=== PATIENT | male | born 1955 | race Caucasian/White ===

== ENCOUNTER 2016-08-31 13:21 | Emergency (ER) | payer BC ==
[~2016-08-31] VITALS: Ht 170.2 cm; Wt 81.2 kg
[~2016-08-31 13:21] MED LIST: HYDR-3533 PO; NAPR500 PO; ZOFR4TAB3 PO
[2016-08-31 13:33] VITALS: BP 154/83; PULSE 64; RESP 15; TEMP 98.1; O2SAT 98
[2016-08-31] MEDS ORDERED: SODIUM CHLOR 0.9% 1000 ML INJ 1,000 ML IV SCH (13:48)
[2016-08-31 13:53] VITALS: RESP 16; O2SAT 99
[2016-08-31] MEDS ORDERED: SODIUM CHLORIDE 0.9% FLUSH 10 ML FLUSH IV FLUSH PRN (14:00)
[2016-08-31] MEDS ORDERED: ONDANSETRON HCL 4 MG/2 ML VIAL IVP ONE (14:00)
[2016-08-31] MEDS ORDERED: MORPHINE SULFATE 4 MG/ML INJ IV PUSH ONE ×2 (14:00→15:15)
[2016-08-31 14:09] LABS: AUTOMATED NEUTROPHIL # 5.1 TH/MM3 (1.8-7.7); BASOPHIL # 0.1 TH/MM3 (0-0.2); BASOPHIL % 0.8 % (0.0-2.0); EOSINOPHIL # 0.2 TH/MM3 (0-0.4); EOSINOPHIL % 2.6 % (0.0-4.0); HEMATOCRIT 37.1 % (39.0-51.0); LYMPH % 15.1 % (9.0-44.0); MEAN CELL VOLUME 90.8 FL (80.0-100.0); MEAN CORPUSCULAR HEMOGLOBIN 31.5 PG (27.0-34.0); MEAN CORPUSCULAR HGB CONC 34.7 % (32.0-36.0); MONO % 6.5 % (0.0-8.0); PLATELET COUNT 178 TH/MM3 (150-450); RED BLOOD COUNT 4.09 MIL/MM3 (4.50-5.90); RED CELL DISTRIBUTION WIDTH 12.1 % (11.6-17.2); WHITE BLOOD COUNT 6.8 TH/MM3 (4.0-11.0)
[2016-08-31 14:10] LABS: HEMO FLAGS DIFF FINAL
[2016-08-31 14:22] LABS: CHLORIDE 109 MEQ/L (98-107); POTASSIUM 4.1 MEQ/L (3.5-5.1); SODIUM (NA) 146 MEQ/L (136-145)
[2016-08-31 14:26] LABS: ANION GAP 10 MEQ/L (5-15); BICARBONATE 27.4 MEQ/L (21.0-32.0)
[2016-08-31 14:27] LABS: BLOOD UREA NITROGEN 11 MG/DL (7-18)
[2016-08-31 14:29] LABS: ALT (GPT) 33 U/L (12-78); AST (GOT) 24 U/L (15-37); GLOMERULAR FILTRATION RATE 79 ML/MIN (>89)
[2016-08-31 14:31] LABS: TOTAL BILIRUBIN ADULT 0.6 MG/DL (0.2-1.0)
[2016-08-31 14:32] LABS: ALKALINE PHOSPHATASE 87 U/L (45-117)
--- NOTE | 2016-08-31 14:33 | PD ---
HPI Chief Complaint: Abdominal Pain Time Seen by Provider: 13:38 Travel History International Travel<30 days: No Contact w/Intl Traveler<30days: No Traveled to known affect area: No History of Present Illness HPI The patient is a 60-year-old male who presents to the emergency department for abdominal pain. The patient states abdominal pain started this morning, is located left lower quadrant, nonradiating, worse with coughing and certain positions such as sitting upright. Patient denies any radiation of the pain to the back or upper abdomen. He denies any nausea, vomiting, diarrhea, or change in bowel habits. He does occasionally feel like he needs to have a bowel movement, but attributed to the abdominal pain. The patient denies any dysuria, frequency, or urgency. The patient does have a history of nephrolithiasis with different symptoms in the past. The patient denies any history of diverticulitis. The patient did have an abdominal surgery for left inguinal hernia at the age of 6. He denies any associated fever, chills, or sweats. PFSH Past Medical History Diminished Hearing: No Hypertension: Yes Inguinal Hernia: Yes Kidney Stones: Yes Immunizations Current: No Tetanus Vaccination: > 5 Years Influenza Vaccination: No ?: Not Past Surgical History Surgical History: No Previous Surgery Abdominal Surgery: Yes (RIGHT INGUINAL HERNIA REAPIR, CHILD) Social History Alcohol Use: Yes (WINE, OCCASIONALLY) Tobacco Use: No (QUIT 15-20 YRS AGO) Substance Use: No Allergies-Medications (Allergen,Severity, Reaction): Coded Allergies: No Known Allergies (Unverified , 08/31/16) Reported Meds & Prescriptions Reported Meds & Active Scripts Active Lortab 5 mg/325 mg (Hydrocodone/Acetaminophen 5 mg/325 mg) 1 Tab 1-2 Tab PO Q4H PRN Naprosyn (Naproxen) 500 Mg Tab 500 Mg PO BID PRN Zofran ODT (Ondansetron HCl) 4 Mg Tab 4 Mg PO Q6 PRN May substitute, non-ODT form Review of Systems Except as stated in HPI: all other systems reviewed are Neg General / Constitutional: No: Fever Cardiovascular: No: Chest Pain or Discomfort Respiratory: No: Shortness of Breath Gastrointestinal: Positive: Abdominal Pain, No: Nausea, Vomiting, Diarrhea, Constipation, Changes in Bowel Habits Genitourinary: No: Dysuria, Hematuria Musculoskeletal: No: Myalgias Skin: No Rash Physical Exam Narrative GENERAL: Awake, alert, pleasant 60-year-old male who appears his stated age and is in no acute respiratory distress. SKIN: Focused skin assessment warm/dry. HEAD: Atraumatic. Normocephalic. EYES: No injection or drainage. ENT: No nasal bleeding or discharge. Mucous membranes pink and moist. NECK: Trachea midline. No JVD. CARDIOVASCULAR: Regular rate and rhythm. No murmur appreciated. RESPIRATORY: No accessory muscle use. Clear to auscultation. Breath sounds equal bilaterally. GASTROINTESTINAL: Abdomen soft, tender to palpation left lower quadrant with mild guarding. No rebound tenderness. Back: No CVA tenderness. MUSCULOSKELETAL: No obvious deformities. No clubbing. No cyanosis. No edema. NEUROLOGICAL: Awake and alert. No obvious cranial nerve deficits. Motor grossly within normal limits. Normal speech. PSYCHIATRIC: Appropriate mood and affect; insight and judgment normal. Data Data Last Documented VS Vital Signs Date Time Temp Pulse Resp B/P Pulse Ox O2 Delivery O2 Flow Rate FiO2 08/31/16 14:56 64 18 146/84 98 Room Air 08/31/16 13:33 98.1 Orders Complete Blood Count With Diff (08/31/16 13:48) Comprehensive Metabolic Panel (08/31/16 13:48) Lipase (08/31/16 13:48) Ct Abd/Pel W/O Iv Contrast (08/31/16 13:48) Iv Access Insert/Monitor (08/31/16 13:48) Ecg Monitoring (08/31/16 13:48) Oximetry (08/31/16 13:48) Morphine Inj (Morphine Inj) (08/31/16 14:00) Ondansetron Inj (Zofran Inj) (08/31/16 14:00) Sodium Chlor 0.9% 1000 Ml Inj (Ns 1000 M (08/31/16 13:48) Sodium Chloride 0.9% Flush (Ns Flush) (08/31/16 14:00) Labs Laboratory Tests Test 08/31/16 14:00 White Blood Count 6.8 TH/MM3 Red Blood Count 4.09 MIL/MM3 Hemoglobin 12.9 GM/DL Hematocrit 37.1 % Mean Corpuscular Volume 90.8 FL Mean Corpuscular Hemoglobin 31.5 PG Mean Corpuscular Hemoglobin 34.7 % Concent Red Cell Distribution Width 12.1 % Platelet Count 178 TH/MM3 Mean Platelet Volume 7.6 FL Neutrophils (%) (Auto) 75.0 % Lymphocytes (%) (Auto) 15.1 % Monocytes (%) (Auto) 6.5 % Eosinophils (%) (Auto) 2.6 % Basophils (%) (Auto) 0.8 % Neutrophils # (Auto) 5.1 TH/MM3 Lymphocytes # (Auto) 1.0 TH/MM3 Monocytes # (Auto) 0.4 TH/MM3 Eosinophils # (Auto) 0.2 TH/MM3 Basophils # (Auto) 0.1 TH/MM3 CBC Comment DIFF FINAL Differential Comment Sodium Level 146 MEQ/L Potassium Level 4.1 MEQ/L Chloride Level 109 MEQ/L Carbon Dioxide Level 27.4 MEQ/L Anion Gap 10 MEQ/L Blood Urea Nitrogen 11 MG/DL Creatinine 0.98 MG/DL Estimat Glomerular Filtration 79 ML/MIN Rate Random Glucose 120 MG/DL Calcium Level 8.4 MG/DL Total Bilirubin 0.6 MG/DL Aspartate Amino Transf 24 U/L (AST/SGOT) Alanine Aminotransferase 33 U/L (ALT/SGPT) Alkaline Phosphatase 87 U/L Total Protein 6.9 GM/DL Albumin 3.6 GM/DL Lipase 6437 U/L MDM Medical Decision Making Medical Screen Exam Complete: Yes Emergency Medical Condition: Yes Medical Record Reviewed: Yes Interpretation(s) Last Impressions Abdomen/Pelvis CT 08/31/16 1348 Signed Impressions: Service Date/Time: Wednesday, August 31, 2016 14:32 - CONCLUSION: Acute diverticulitis. Roberto Miguel MD Laboratory Tests Test 08/31/16 14:00 White Blood Count 6.8 TH/MM3 Red Blood Count 4.09 MIL/MM3 Hemoglobin 12.9 GM/DL Hematocrit 37.1 % Mean Corpuscular Volume 90.8 FL Mean Corpuscular Hemoglobin 31.5 PG Mean Corpuscular Hemoglobin 34.7 % Concent Red Cell Distribution Width 12.1 % Platelet Count 178 TH/MM3 Mean Platelet Volume 7.6 FL Neutrophils (%) (Auto) 75.0 % Lymphocytes (%) (Auto) 15.1 % Monocytes (%) (Auto) 6.5 % Eosinophils (%) (Auto) 2.6 % Basophils (%) (Auto) 0.8 % Neutrophils # (Auto) 5.1 TH/MM3 Lymphocytes # (Auto) 1.0 TH/MM3 Monocytes # (Auto) 0.4 TH/MM3 Eosinophils # (Auto) 0.2 TH/MM3 Basophils # (Auto) 0.1 TH/MM3 CBC Comment DIFF FINAL Differential Comment Sodium Level 146 MEQ/L Potassium Level 4.1 MEQ/L Chloride Level 109 MEQ/L Carbon Dioxide Level 27.4 MEQ/L Anion Gap 10 MEQ/L Blood Urea Nitrogen 11 MG/DL Creatinine 0.98 MG/DL Estimat Glomerular Filtration 79 ML/MIN Rate Random Glucose 120 MG/DL Calcium Level 8.4 MG/DL Total Bilirubin 0.6 MG/DL Aspartate Amino Transf 24 U/L (AST/SGOT) Alanine Aminotransferase 33 U/L (ALT/SGPT) Alkaline Phosphatase 87 U/L Total Protein 6.9 GM/DL Albumin 3.6 GM/DL Lipase 6437 U/L Differential Diagnosis Differential diagnosis includes diverticulitis, nephrolithiasis, colitis, abdominal abscess, hydronephrosis, pyelonephritis, UTI, small bowel obstruction , large bowel obstruction. Narrative Course IV was established, labs are drawn and sent, and the patient was placed on cardiac telemetry monitoring and continuous pulse oximetry monitoring. The patient was administered morphine, Zofran, and IV fluids. CT of the abdomen and pelvis was ordered to evaluate for diverticulitis. The patient's labs reveal an elevated lipase greater than 6300, however, the patient has no nausea , vomiting, epigastric abdominal pain. CT reveals acute diverticulitis. Had a discussion with the patient, he is able tolerate oral intake, has epigastric tenderness, therefore, lipase may be lab error, patient will need repeat outpatient lipase level. Patient will be treated with Cipro, Flagyl, and pain medications. The patient is comfortable with this plan of care. He will be discharged home with antibiotics and pain medications. Diagnosis Primary Impression: Acute diverticulitis Patient Instructions: General Instructions Additional Instructions: Medications as directed. Follow-up with your primary physician. You need a repeat outpatient lipase level. Please provide the patient a copy of his CT results and lab results at discharge. Return if symptoms worsen or progress. Med/Other Pt SpecificInfo: Prescription(s) given Scripts Hydrocodone-Acetaminophen (Rives)5-325 mg Tab1 Tab PO Q6H PRN (PAIN) #20 TAB Ref 0 Prov:Oscar Smith MD 08/31/16 Metronidazole (Flagyl)500 Mg [id number] Mg PO BID 7 Days Ref 0 Prov:Oscar Smith MD 08/31/16 Ciprofloxacin (Cipro)500 Mg [id number] Mg PO BID 7 Days Ref 0 Prov:Oscar Smith MD 08/31/16 Disposition: 01 DISCHARGE HOME Condition: Stable Oscar Smith MD Aug 31, 2016 14:33
[2016-08-31 14:56] VITALS: BP 146/84; PULSE 64; RESP 18; O2SAT 98
--- NOTE | 2016-08-31 14:57 | RADHPO ---
EXAM DATE/TIME: 08/31/2016 14:32 [facility] COMPARISON: CT ABDOMEN & PELVIS W/O CONTRAST, October 21, 2014, 6:41. INDICATIONS : Lower left abdomen pain. ORAL CONTRAST: No oral contrast ingested. RADIATION DOSE: 10.34 CTDIvol (mGy) MEDICAL HISTORY : None SURGICAL HISTORY : Inguinal hernia repair. ENCOUNTER: Initial ACUITY: 1 day PAIN SCALE: 4/10 LOCATION: Left flank TECHNIQUE: Volumetric scanning of the abdomen and pelvis was performed. Using automated exposure control and ad justment of the mA and/or kV according to patient size, radiation dose was kept as low as reasonably achievable to obtain optimal diagnostic quality images. FINDINGS: CT Abdomen: The spleen, pancreas, kidneys, adrenals are unremarkable. There is no evidence for any ap preciable pathological adenopathy, free fluid, or bowel obstruction. There is slight atelectasis and /or infiltrate in right middle lobe. The liver is fatty without focal lesions or technique. There is no evidence for any stones in the kidneys or the course of the ureters on either side. There is no hy dronephrosis. CT pelvis: There is no evidence for mass, abscess formation, or any significant adenopathy within the pelvis. There are diverticuli in the colon with an area of acute diverticulitis involving descending colon at the junction of the sigmoid colon not present previously. Previously seen stone in the left UVJ is no longer seen. CONCLUSION: Acute diverticulitis. Roberto Miguel MD on August 31, 2016 at 14:53 Board Certified Radiologist. This report was verified electronically.
[2016-08-31] MEDS ORDERED: CIPR-9 PO (15:14)
[2016-08-31] MEDS ORDERED: NORC5TAB PO (15:14)
[2016-08-31] MEDS ORDERED: METR-1 PO (15:14)
[2016-08-31] MEDS ORDERED: CIPROFLOXACIN 500 MG TAB PO ONE (15:15)
[2016-08-31] MEDS ORDERED: metroNIDAZOLE 500 MG INJ 100 ML IV ONE (15:15)
[2016-08-31 16:00] VITALS: BP 123/74; PULSE 74; RESP 16; O2SAT 100
== END 2016-08-31 16:44 | disposition home or self-care (01) ==
LOC: PHED 13:21
DX: K57.32 Diverticulitis of large intestine without perforation or abscess without bleeding (principal); I10 Essential (primary) hypertension; R79.89 Other specified abnormal findings of blood chemistry; Z87.442 Personal history of urinary calculi; Z87.39 Personal history of other diseases of the musculoskeletal system and connective tissue
CPT/HCPCS: 74176; 80053; 83690; 85025; 96361; 96365; 96375; 96376; 99284; J2270; J2405; J7030

== ENCOUNTER 2017-07-30 17:58 | Emergency (ER) | payer BC ==
[~2017-07-30] VITALS: Ht 170.2 cm; Wt 80.7 kg
[~2017-07-30 17:58] MED LIST changes: +CIPR-9 PO; +METR-1 PO; +NORC5TAB PO
[2017-07-30 17:59] VITALS: BP 149/71; PULSE 65; RESP 16; TEMP 99; O2SAT 99
[2017-07-30] MEDS ORDERED: VENTAER INH (18:23)
[2017-07-30] MEDS ORDERED: SODIUM CHLOR 0.9% 1000 ML INJ 1,000 ML IV SCH (18:26)
[2017-07-30] MEDS ORDERED: SODIUM CHLORIDE 0.9% FLUSH 10 ML FLUSH IV FLUSH PRN (18:30)
[2017-07-30 18:43] LABS: AUTOMATED NEUTROPHIL # 7.6 TH/MM3 (1.8-7.7); BASOPHIL # 0.3 TH/MM3 (0-0.2); BASOPHIL % 3.3 % (0.0-2.0); EOSINOPHIL # 0.1 TH/MM3 (0-0.4); EOSINOPHIL % 0.7 % (0.0-4.0); HEMATOCRIT 38.3 % (39.0-51.0); HEMOGLOBIN 12.8 GM/DL (13.0-17.0); LYMPH % 10.7 % (9.0-44.0); MEAN CELL VOLUME 90.9 FL (80.0-100.0); MEAN CORPUSCULAR HEMOGLOBIN 30.5 PG (27.0-34.0); MEAN CORPUSCULAR HGB CONC 33.5 % (32.0-36.0); MEAN PLATELET VOLUME 7.8 FL (7.0-11.0); MONO % 5.2 % (0.0-8.0); MONOCYTE # 0.5 TH/MM3 (0-0.9); NEUT % 80.1 % (16.0-70.0); PLATELET COUNT 175 TH/MM3 (150-450); RED BLOOD COUNT 4.21 MIL/MM3 (4.50-5.90); RED CELL DISTRIBUTION WIDTH 12.2 % (11.6-17.2); WHITE BLOOD COUNT 9.5 TH/MM3 (4.0-11.0)
[2017-07-30] MEDS ORDERED: IOHEXOL 350 MG/ML 10 ML VIAL (for RAD DIAG) IVCONTRAST ONE (18:43)
[2017-07-30 18:47] VITALS: PULSE 67; RESP 16; O2SAT 99
[2017-07-30 18:56] LABS: CHLORIDE 108 MEQ/L (98-107); SODIUM (NA) 138 MEQ/L (136-145)
[2017-07-30 18:58] VITALS: BP 131/80; PULSE 67; RESP 16; O2SAT 99
--- NOTE | 2017-07-30 18:58 | RADRPT ---
EXAM DATE/TIME: 07/30/2017 18:39 [facility] COMPARISON: CT ABDOMEN & PELVIS W/O CONTRAST, August 31, 2016, 14:32. INDICATIONS : Left sided abdomen pain. IV CONTRAST: 100 cc Omnipaque 350 (iohexol) IV ORAL CONTRAST: No oral contrast ingested. RADIATION DOSE: 9.07 CTDIvol (mGy) MEDICAL HISTORY : Diverticulitis. Hernia, inguinal. Renal calculi. SURGICAL HISTORY : Inguinal hernia repair. ENCOUNTER: Initial ACUITY: 1 day PAIN SCALE: 9/10 LOCATION: Left abdomen TECHNIQUE: Volumetric scanning of the abdomen and pelvis was performed. Using automated exposure control and ad justment of the mA and/or kV according to patient size, radiation dose was kept as low as reasonably achievable to obtain optimal diagnostic quality images. DICOM format image data is available electro nically for review and comparison. FINDINGS: LOWER LUNGS: The visualized lower lungs are clear. LIVER: Small area of fatty infiltration adjacent to the falciform ligament. Homogeneous density otherwise wi thout focal lesion. There is no dilation of the biliary tree. No calcified gallstones. SPLEEN: Normal size without lesion. PANCREAS: Within normal limits. KIDNEYS: Normal in size and shape. There is no mass, stone or hydronephrosis. ADRENAL GLANDS: Within normal limits. VASCULAR: There is no aortic aneurysm. BOWEL/MESENTERY: There is diverticulosis of the left side of the colon. Moderate severity acute diverticulitis seen in the pelvic cavity involving the proximal to mid sigmoid colon. No abscess, perforation or obstructio n. ABDOMINAL WALL: Within normal limits. RETROPERITONEUM: There is no lymphadenopathy. BLADDER: No wall thickening or mass. REPRODUCTIVE: Within normal limits. INGUINAL: There is no lymphadenopathy or hernia. MUSCULOSKELETAL: No acute bony abnormality demonstrated. CONCLUSION: Uncomplicated acute diverticulitis of the sigmoid colon. John Moreno MD on July 30, 2017 at 18:54 Board Certified Radiologist. This report was verified electronically.
[2017-07-30 18:59] LABS: CALCIUM 8.6 MG/DL (8.5-10.1)
[2017-07-30 19:00] LABS: ALBUMIN 3.7 GM/DL (3.4-5.0); BICARBONATE 24.1 MEQ/L (21.0-32.0); BLOOD UREA NITROGEN 14 MG/DL (7-18); GLUCOSE,RANDOM 88 MG/DL (74-106)
[2017-07-30 19:03] LABS: ALT (GPT) 41 U/L (12-78); AST (GOT) 34 U/L (15-37); CREATININE 0.78 MG/DL (0.60-1.30); GLOMERULAR FILTRATION RATE 102 ML/MIN (>89)
[2017-07-30 19:04] LABS: TOTAL BILIRUBIN ADULT 0.6 MG/DL (0.2-1.0)
[2017-07-30 19:05] LABS: TOTAL PROTEIN 7.3 GM/DL (6.4-8.2)
[2017-07-30 19:06] LABS: ALKALINE PHOSPHATASE 89 U/L (45-117)
[2017-07-30] MEDS ORDERED: METR-1 PO (19:22)
[2017-07-30] MEDS ORDERED: CIPR-9 PO (19:22)
[2017-07-30] MEDS ORDERED: DICY10 PO (19:22)
[2017-07-30] MEDS ORDERED: ZOFR4TAB3 SL (19:22)
--- NOTE | 2017-07-30 19:22 | PD ---
HPI Chief Complaint: Abdominal Pain Time Seen by Provider: 18:17 Travel History International Travel<30 days: No Contact w/Intl Traveler<30days: No Traveled to known affect area: No History of Present Illness HPI Patient is a 61-year-old male with a history of isolated kidney stone and isolated diverticulitis in the past presents emergency department for evaluation of left lower quadrant abdominal pain for the past few days, waxing and waning, associated with some nausea without vomiting. No blood in stool. No fevers, still tolerating good p.o. States the pain is moderate in intensity , no chest pain no shortness of breath. Gradually worsening. Associated signs and symptoms and contacts as above. Patient went to an urgent care center today and was referred to the emergency department. [facility] Past Medical History Asthma: Yes (exercise induce asthma) Diminished Hearing: No Diverticulitis: Yes Hypertension: Yes Inguinal Hernia: Yes Kidney Stones: Yes Immunizations Current: No Tetanus Vaccination: > 5 Years Influenza Vaccination: No Past Surgical History Abdominal Surgery: Yes (RIGHT INGUINAL HERNIA REAPIR, CHILD) Social History Alcohol Use: Yes (WINE, OCCASIONALLY) Tobacco Use: No (QUIT 15-20 YRS AGO-hx of cig smoker) Substance Use: No Allergies-Medications (Allergen,Severity, Reaction): Coded Allergies: No Known Allergies (Unverified Adverse Reaction, Unknown, 07/30/17) Reported Meds & Prescriptions Reported Meds & Active Scripts Active Bentyl (Dicyclomine HCl) 10 Mg Cap 10 Mg PO TID PRN Zofran Odt (Ondansetron Odt) 4 Mg Tab 4 Mg SL Q6HR PRN Cipro (Ciprofloxacin HCl) 500 Mg Tab 500 Mg PO BID 7 Days Flagyl (Metronidazole) 500 Mg Tab 500 Mg PO BID 7 Days Reported Ventolin Hfa 18 GM Inh (Albuterol Sulfate) 90 Mcg/Act Aer 2 Puff INH Q4-6H PRN Review of Systems Except as stated in HPI: all other systems reviewed are Neg Physical Exam Narrative GENERAL: Well-developed, well-nourished, no obvious distress SKIN: Focused skin assessment warm/dry. HEAD: Atraumatic. Normocephalic. EYES: Pupils equal and round. No scleral icterus. No injection or drainage. ENT: No nasal bleeding or discharge. Mucous membranes pink and moist. NECK: Trachea midline. No JVD. CARDIOVASCULAR: Regular rate and rhythm. No murmur appreciated. RESPIRATORY: No accessory muscle use. Clear to auscultation. Breath sounds equal bilaterally. GASTROINTESTINAL: Abdomen soft, minimally tender in the left lower quadrant without any rebound or percussive tenderness., nondistended. Hepatic and splenic margins not palpable. MUSCULOSKELETAL: No obvious deformities. No clubbing. No cyanosis. No edema. NEUROLOGICAL: Awake and alert. No obvious cranial nerve deficits. Motor grossly within normal limits. Normal speech. PSYCHIATRIC: Appropriate mood and affect; insight and judgment normal. Data Data Last Documented VS Vital Signs Date Time Temp Pulse Resp B/P (MAP) Pulse Ox O2 Delivery O2 Flow Rate FiO2 07/30/17 19:49 62 16 151/83 (105) 100 07/30/17 18:47 Room Air 07/30/17 17:59 99.0 Orders Orders Complete Blood Count With Diff (07/30/17 18:26) Comprehensive Metabolic Panel (07/30/17 18:26) Lipase (07/30/17 18:26) Ct Abd/Pel W Iv Contrast(Rout) (07/30/17 18:26) Iv Access Insert/Monitor (07/30/17 18:26) Ecg Monitoring (07/30/17 18:26) Oximetry (07/30/17 18:26) Sodium Chlor 0.9% 1000 Ml Inj (Ns 1000 M (07/30/17 18:26) Sodium Chloride 0.9% Flush (Ns Flush) (07/30/17 18:30) Iohexol 350 Inj (Omnipaque 350 Inj) (07/30/17 18:43) Ed Discharge Order (07/30/17 19:22) Labs Laboratory Tests Test 07/30/17 18:35 White Blood Count 9.5 TH/MM3 Red Blood Count 4.21 MIL/MM3 Hemoglobin 12.8 GM/DL Hematocrit 38.3 % Mean Corpuscular Volume 90.9 FL Mean Corpuscular Hemoglobin 30.5 PG Mean Corpuscular Hemoglobin Concent 33.5 % Red Cell Distribution Width 12.2 % Platelet Count 175 TH/MM3 Mean Platelet Volume 7.8 FL Neutrophils (%) (Auto) 80.1 % Lymphocytes (%) (Auto) 10.7 % Monocytes (%) (Auto) 5.2 % Eosinophils (%) (Auto) 0.7 % Basophils (%) (Auto) 3.3 % Neutrophils # (Auto) 7.6 TH/MM3 Lymphocytes # (Auto) 1.0 TH/MM3 Monocytes # (Auto) 0.5 TH/MM3 Eosinophils # (Auto) 0.1 TH/MM3 Basophils # (Auto) 0.3 TH/MM3 CBC Comment DIFF FINAL Differential Comment Blood Urea Nitrogen 14 MG/DL Creatinine 0.78 MG/DL Random Glucose 88 MG/DL Total Protein 7.3 GM/DL Albumin 3.7 GM/DL Calcium Level 8.6 MG/DL Alkaline Phosphatase 89 U/L Aspartate Amino Transf (AST/SGOT) 34 U/L Alanine Aminotransferase (ALT/SGPT) 41 U/L Total Bilirubin 0.6 MG/DL Sodium Level 138 MEQ/L Potassium Level 4.3 MEQ/L Chloride Level 108 MEQ/L Carbon Dioxide Level 24.1 MEQ/L Anion Gap 6 MEQ/L Estimat Glomerular Filtration Rate 102 ML/MIN Lipase 434 U/L MDM Medical Decision Making Medical Screen Exam Complete: Yes Emergency Medical Condition: Yes Differential Diagnosis Diverticulitis, kidney stone, diverticular abscess seems unlikely. Narrative Course Patient room to the emergency department although he is comfortable he is somewhat tender in the left lower quadrant, will pursue a CAT scan of the abdomen, his basic labs are reviewed and electrolytes within normal limits but there is a small left shift with a normal white blood cell count. His CAT scan of the abdomen shows an acute uncomplicated diverticulitis of the sigmoid colon. Patient was offered pain medicine and he declined. He was reassured after the CAT scan, discussed symptomatic management follow-up with a GI doctor for colonoscopy after his symptoms are resolved. Discussed return to ED criteria. He is stable for discharge. Diagnosis Primary Impression: Acute diverticulitis Med/Other Pt SpecificInfo: Prescription(s) given Scripts Dicyclomine (Bentyl) 10 Mg Cap 10 MG PO TID Y for ABDOMINAL CRAMPING, #20 CAP 0 Refills Prov: Ji Renee MD 07/30/17 Ondansetron Odt (Zofran Odt) 4 Mg Tab 4 MG SL Q6HR Y for Nausea/Vomiting, #30 TAB 0 Refills Prov: Ji Renee MD 07/30/17 Ciprofloxacin (Cipro) 500 Mg Tab 500 MG PO BID for Infection for 7 Days, TAB 0 Refills Prov: Ji Renee MD 07/30/17 Metronidazole (Flagyl) 500 Mg Tab 500 MG PO BID for Infection for 7 Days, TAB 0 Refills Prov: Ji Renee MD 07/30/17 Disposition: 01 DISCHARGE HOME Condition: Stable Ji Renee MD Jul 30, 2017 19:22
[2017-07-30 19:49] VITALS: BP 151/83
== END 2017-07-30 20:02 | disposition home or self-care (01) ==
LOC: PHED 17:58
DX: K57.32 Diverticulitis of large intestine without perforation or abscess without bleeding (principal)
CPT/HCPCS: 74177; 80053; 83690; 85025; 96374; 99284; J7030; Q9967

== ENCOUNTER 2017-10-21 11:02 | Emergency (ER) | payer BC ==
[~2017-10-21] VITALS: Ht 170.2 cm; Wt 81.7 kg
[~2017-10-21 11:02] MED LIST changes: +DICY10 PO; -HYDR-3533 PO; -NAPR500 PO; -NORC5TAB PO; +VENTAER INH; -ZOFR4TAB3 PO; +ZOFR4TAB3 SL
[2017-10-21 11:05] VITALS: BP 169/80; PULSE 60; RESP 16; TEMP 98.2; O2SAT 98
[2017-10-21 11:23] LABS: BILIRUBIN, URINE NEG (NEG); BLOOD, URINE NEG (NEG); GLUCOSE,URINE NEG (NEG); KETONE, URINE NEG (NEG); NITRITE,URINE NEG (NEG); URINE COLOR YELLOW (YELLW/STRAW); URINE LEUKOCYTE ESTERASE NEG (NEG)
[2017-10-21 11:29] LABS: MUCUS URINE FEW /lpf (OCC); RBC, URINE 0-3 /hpf (0-3); SQUAMOUS EPITHELIAL CELL URINE 0-5 /hpf (0-5)
--- NOTE | 2017-10-21 11:30 | PD ---
HPI Chief Complaint: Abdominal Pain Time Seen by Provider: 11:19 Travel History International Travel<30 days: No Contact w/Intl Traveler<30days: No Traveled to known affect area: No History of Present Illness HPI This 62-year-old male is complaining of abdominal pain. He is having some lower and mid abdominal pain. Pain is not severe. He has had diverticulitis on 2 occasions in the past and he says it feels similar to the pain he had with his diverticulitis. It is not as severe. There has not been any vomiting. He has not had any fever. PFSH Past Medical History Asthma: Yes (exercise induce asthma) Diminished Hearing: No Diverticulitis: Yes Hypertension: Yes (DENIES TAKING ANY MEDICATION ) Inguinal Hernia: Yes Kidney Stones: Yes Immunizations Current: No Tetanus Vaccination: Unknown Influenza Vaccination: No Past Surgical History Abdominal Surgery: Yes (RIGHT INGUINAL HERNIA REAPIR, CHILD) Social History Alcohol Use: Yes (WINE, OCCASIONALLY) Tobacco Use: No (QUIT 15-20 YRS AGO-hx of cig smoker) Substance Use: No Allergies-Medications (Allergen,Severity, Reaction): Coded Allergies: No Known Allergies (Verified Adverse Reaction, Unknown, 10/21/17) Reported Meds & Prescriptions Reported Meds & Active Scripts Active Review of Systems Except as stated in HPI: all other systems reviewed are Neg General / Constitutional: No: Fever, Chills Eyes: No: Diploplia, Blurred Vision HENT: No: Headaches Cardiovascular: No: Chest Pain or Discomfort, Palpitations Respiratory: No: Cough, Shortness of Breath Gastrointestinal: Positive: Abdominal Pain, No: Nausea, Vomiting, Diarrhea Genitourinary: No: Urgency, Frequency Physical Exam Narrative GENERAL: Well-developed male SKIN: Focused skin assessment warm/dry. HEAD: Atraumatic. Normocephalic. EYES: Pupils equal and round. No scleral icterus. No injection or drainage. ENT: No nasal bleeding or discharge. Mucous membranes pink and moist. NECK: Trachea midline. No JVD. CARDIOVASCULAR: Regular rate and rhythm. No murmur appreciated. RESPIRATORY: No accessory muscle use. Clear to auscultation. Breath sounds equal bilaterally. GASTROINTESTINAL: Abdomen soft, there is some mild left-sided abdominal tenderness without guarding, nondistended. Hepatic and splenic margins not palpable. MUSCULOSKELETAL: No obvious deformities. No clubbing. No cyanosis. No edema. NEUROLOGICAL: Awake and alert. No obvious cranial nerve deficits. Motor grossly within normal limits. Normal speech. PSYCHIATRIC: Appropriate mood and affect; insight and judgment normal. Data Data Last Documented VS Vital Signs Date Time Temp Pulse Resp B/P (MAP) Pulse Ox O2 Delivery O2 Flow Rate FiO2 10/21/17 11:05 98.2 60 16 169/80 (109) 98 Orders Orders Urinalysis - C+S If Indicated (10/21/17 11:06) Complete Blood Count With Diff (10/21/17 11:27) Basic Metabolic Panel (Bmp) (10/21/17 11:27) Labs Laboratory Tests Test 10/21/17 11:15 10/21/17 11:35 Urine Collection Type CLEAN CATCH Urine Color YELLOW Urine Turbidity CLEAR Urine pH 5.0 Urine Specific [place] GREATER/EQUAL 1.030 Urine Protein NEG mg/dL Urine Glucose (UA) NEG mg/dL Urine Ketones NEG mg/dL Urine Occult Blood NEG Urine Nitrite NEG Urine Bilirubin NEG Urine Urobilinogen 0.2 MG/DL Urine Leukocyte Esterase NEG Urine RBC 0-3 /hpf Urine Squamous Epithelial Cells 0-5 /hpf Urine Mucus FEW /lpf Microscopic Urinalysis Comment CULT NOT INDICATED White Blood Count 7.3 TH/MM3 Red Blood Count 4.35 MIL/MM3 Hemoglobin 13.4 GM/DL Hematocrit 39.4 % Mean Corpuscular Volume 90.7 FL Mean Corpuscular Hemoglobin 30.9 PG Mean Corpuscular Hemoglobin Concent 34.1 % Red Cell Distribution Width 13.1 % Platelet Count 202 TH/MM3 Mean Platelet Volume 7.8 FL Neutrophils (%) (Auto) 74.3 % Lymphocytes (%) (Auto) 17.2 % Monocytes (%) (Auto) 5.7 % Eosinophils (%) (Auto) 2.2 % Basophils (%) (Auto) 0.6 % Neutrophils # (Auto) 5.4 TH/MM3 Lymphocytes # (Auto) 1.3 TH/MM3 Monocytes # (Auto) 0.4 TH/MM3 Eosinophils # (Auto) 0.2 TH/MM3 Basophils # (Auto) 0.0 TH/MM3 CBC Comment DIFF FINAL Differential Comment Blood Urea Nitrogen 9 MG/DL Creatinine 0.77 MG/DL Random Glucose 121 MG/DL Calcium Level 8.8 MG/DL Sodium Level 139 MEQ/L Potassium Level 3.8 MEQ/L Chloride Level 108 MEQ/L Carbon Dioxide Level 24.5 MEQ/L Anion Gap 7 MEQ/L Estimat Glomerular Filtration Rate 103 ML/MIN MDM Medical Decision Making Medical Screen Exam Complete: Yes Emergency Medical Condition: Yes Medical Record Reviewed: Yes Differential Diagnosis Differential includes diverticulitis, gastroenteritis, IBS Narrative Course White count is normal. Patient will be treated for diverticulitis with Cipro and Flagyl. The importance of GI follow-up was stressed to the patient Diagnosis Primary Impression: Acute diverticulitis Scripts Metronidazole (Flagyl) 500 Mg Tab 500 MG PO TID for Infection for 7 Days, TAB 0 Refills Prov: Hair Rainey MD 10/21/17 Ciprofloxacin (Ciprofloxacin) 500 Mg Tab 500 MG PO BID for Infection for 7 Days, #14 TAB 0 Refills Prov: Hair Rainey MD 10/21/17 Disposition: 01 DISCHARGE HOME Condition: Stable Hair Rainey MD Oct 21, 2017 11:30
[2017-10-21 11:43] LABS: AUTOMATED NEUTROPHIL # 5.4 TH/MM3 (1.8-7.7); BASOPHIL % 0.6 % (0.0-2.0); EOSINOPHIL # 0.2 TH/MM3 (0-0.4); EOSINOPHIL % 2.2 % (0.0-4.0); HEMATOCRIT 39.4 % (39.0-51.0); HEMOGLOBIN 13.4 GM/DL (13.0-17.0); LYMPH % 17.2 % (9.0-44.0); LYMPHOCYTE # 1.3 TH/MM3 (1.0-4.8); MEAN CELL VOLUME 90.7 FL (80.0-100.0); MEAN CORPUSCULAR HEMOGLOBIN 30.9 PG (27.0-34.0); MEAN CORPUSCULAR HGB CONC 34.1 % (32.0-36.0); MEAN PLATELET VOLUME 7.8 FL (7.0-11.0); MONO % 5.7 % (0.0-8.0); MONOCYTE # 0.4 TH/MM3 (0-0.9); NEUT % 74.3 % (16.0-70.0); PLATELET COUNT 202 TH/MM3 (150-450); RED BLOOD COUNT 4.35 MIL/MM3 (4.50-5.90); RED CELL DISTRIBUTION WIDTH 13.1 % (11.6-17.2); WHITE BLOOD COUNT 7.3 TH/MM3 (4.0-11.0)
[2017-10-21 11:55] LABS: CALCIUM 8.8 MG/DL (8.5-10.1)
[2017-10-21 11:56] LABS: BICARBONATE 24.5 MEQ/L (21.0-32.0)
[2017-10-21 11:59] LABS: CREATININE 0.77 MG/DL (0.60-1.30)
[2017-10-21] MEDS ORDERED: CIPR500T2 PO (12:36)
[2017-10-21] MEDS ORDERED: METR-1 PO (12:36)
[2017-10-21 13:02] VITALS: BP 140/84
== END 2017-10-21 13:11 | disposition home or self-care (01) ==
LOC: PHED 11:02
DX: K57.92 Diverticulitis of intestine, part unspecified, without perforation or abscess without bleeding (principal); J45.909 Unspecified asthma, uncomplicated; I10 Essential (primary) hypertension; Z87.442 Personal history of urinary calculi; Z87.891 Personal history of nicotine dependence
CPT/HCPCS: 80048; 81001; 85025; 99283